=== PATIENT | male | born 1950 | race American Indian/Alaskan Native ===

== ENCOUNTER 2018-11-01 12:18 | Outpatient (CLI) | payer MEDICARE, OTHER | END 2018-11-01 12:19 | disposition home or self-care (01) | LOC: C.RADIC 12:18 | DX: R60.9 Edema, unspecified (principal); M79.89 Other specified soft tissue disorders ==

== ENCOUNTER 2018-12-26 14:18 | Outpatient (CLI) | payer MEDICARE, OTHER | END 2018-12-26 14:19 | disposition home or self-care (01) | LOC: C.RADIC 14:18 ==